=== PATIENT | female | born 1990 | race Caucasian/White ===

== ENCOUNTER 2019-11-26 18:39 | Emergency (ER) | payer BC, OTHER ==
[~2019-11-26] VITALS: Ht 165.1 cm; Wt 106.0 kg
[~2019-11-26 18:39] MED LIST: FLUC100T2 PO; HYDR-3165 PO
[2019-11-26] MEDS ORDERED: DEXAMETHASONE 4 MG TABLET PO ONE (19:00)
[2019-11-26] MEDS ORDERED: PRED20TA PO (19:26)
[2019-11-26] MEDS ORDERED: ALBU2.5V8 IH (19:26)
[2019-11-26] MEDS ORDERED: GUAI118L13 PO (19:26)
--- NOTE | 2019-11-26 19:27 | PHYS DOC ---
Past History Past Medical History: Other Additional Past Medical Histor: migraines Past Surgical History: , Tubal ligation, Other Smoking: Non-smoker Alcohol Use: None Drug Use: None Adult General Chief Complaint Chief Complaint: COUGH HPI HPI 29-year-old female presents with one-week history of cough and nasal congestion. Reports subjective fever/chills. Patient reports was started on Tessalon Perles after evaluation by telemedicine doctor. Reports symptoms are not improved. Reports positive sick contacts in spouse and child. Child recently diagnosed with influenza and started on Tamiflu. Review of Systems Review of Systems Constitutional: Reports subjective fever and chills Eyes: Denies redness or eye pain HENT: Reports nasal congestion and sore throat Respiratory: Reports cough and shortness of breath Cardiovascular: Denies chest pain or palpitations GI: Denies abdominal pain, nausea, or vomiting : Denies dysuria or hematuria Musculoskeletal: Denies back pain or joint pain Integument: Denies rash or skin lesions Neurologic: Denies headache, focal weakness or sensory changes Complete systems were reviewed and found to be within normal limits, except as documented in this note. Current Medications Current Medications Current Medications Medications (Trade) Dose Ordered Sig/Nish Start Time Stop Time Status Last Admin Dose Admin Dexamethasone (Decadron) 10 mg 1X ONCE 11/26/19 19:00 11/26/19 19:01 DC 11/26/19 19:18 10 MG Allergies Allergies Allergies Coded Allergies Type Severity Reaction Last Updated Verified No Known Drug Allergies 02/16/14 No Physical Exam Physical Exam Constitutional: Well developed, well nourished, no acute distress, non-toxic appearance HENT: Normocephalic, atraumatic, oropharynx moist, TMs clear, nasal congestion noted Eyes: Conjunctiva normal, no discharge Neck: Normal range of motion, no tenderness, supple Cardiovascular: Heart rate normal, regular rhythm Lungs & Thorax: Bilateral breath sounds clear to auscultation, no wheezing Abdomen: Soft, no tenderness Skin: Warm, dry, no erythema, no rash Back: No tenderness, no CVA tenderness Extremities: No tenderness, ROM intact, no edema Neurologic: Alert and oriented X 3, no focal deficits noted Psychologic: Affect normal, judgment normal Current Patient Data Vital Signs Vital Signs Date Time Temp Pulse Resp B/P (MAP) Pulse Ox O2 Delivery O2 Flow Rate FiO2 11/26/19 19:18 118 18 143/109 (120) 100 Room Air 11/26/19 18:46 98.9 EKG EKG [] Radiology/Procedures Radiology/Procedures PROCEDURE: CHEST PA & LATERAL EXAM: PA and Lateral Views of the Chest DATE: 11/26/2019 7:15 PM INDICATION: Congestion, cough COMPARISON: No Prior FINDINGS: The heart is not enlarged. Mediastinal and hilar contours are normal. No focal parenchymal airspace opacity. No pleural effusion or pneumothorax. IMPRESSION: 1. No radiographic evidence for acute cardiopulmonary process. Electronically signed by: Carlos Goodson MD (11/26/2019 7:55 PM) [id number] Course & Med Decision Making Course & Med Decision Making Pertinent Imaging studies reviewed. (See chart for details) Patient presents with viral urinary type symptoms/bronchitis 1 week. Chest x- ray without acute process. Symptomatic treatment provided with oral steroid. Patient stable for discharge with outpatient follow-up with PCP. Discussed findings and plan with patient and family, who acknowledge understanding and agreement. Dragon Disclaimer Dragon Disclaimer This electronic medical record was generated, in whole or in part, using a voice recognition dictation system. Departure Departure: Impression: Primary Impression: Bronchitis Additional Impression: Flu-like symptoms Disposition: HOME, SELF-CARE Condition: STABLE Referrals: PCP,NO (PCP) Patient Instructions: Acute Bronchitis, [id number], Viral Syndrome Scripts Guaifenesin/Codeine Phosphate (GUAIFENESIN-CODEINE SYRUP) 118 Ml Liquid 10 ML PO Q4HRS PRN for COUGH, #240 ML Prov: ADELE ONEIL DO 11/26/19 Albuterol Sulfate (PROAIR HFA INHALER) 8.5 Gm Hfa.aer.ad 2 PUFF IH PRN Q4-6HRS PRN for wheezing, #1 INHALER 0 Refills Prov: ADELE ONEIL DO 11/26/19 Prednisone (PREDNISONE) 20 Mg Tablet 2 TAB PO DAILY for Bronchitis, #8 TAB Prov: ADELE ONEIL DO 11/26/19 Problem Qualifiers ADELE ONEIL DO Nov 26, 2019 19:26
[2019-11-26 19:30] VITALS: BP 115/69
[2019-11-26] MEDS ORDERED: IBUPROFEN 600 MG TABLET. PO ONE (19:30)
--- NOTE | 2019-11-26 19:58 | RAD ---
EXAM: PA and Lateral Views of the Chest DATE: 11/26/2019 7:15 PM INDICATION: Congestion, cough COMPARISON: No Prior FINDINGS: The heart is not enlarged. Mediastinal and hilar contours are normal. No focal parenchymal airspace opacity. No pleural effusion or pneumothorax. IMPRESSION: 1. No radiographic evidence for acute cardiopulmonary process. Electronically signed by: Carlos Goodson MD (11/26/2019 7:55 PM) [id number]
== END 2019-11-26 19:30 | disposition home or self-care (01) ==
LOC: ER 18:39
DX: J40 Bronchitis, not specified as acute or chronic (principal)
CPT/HCPCS: 71046; 99284; J8540

== ENCOUNTER 2021-11-24 09:21 | Emergency (ER) | payer BC ==
[~2021-11-24] VITALS: Ht 165.1 cm; Wt 110.2 kg
[2021-11-24 09:21] VITALS: BP 149/97
[~2021-11-24 09:21] MED LIST changes: +ALBU2.5V8 IH; +GUAI118L13 PO; +PRED20TA PO
--- NOTE | 2021-11-24 09:52 | PHYS DOC ---
Past History Past Medical History: Other Additional Past Medical Histor: migraines Past Surgical History: , Tubal ligation, Other Smoking: Non-smoker Alcohol Use: None Drug Use: None General Adult EDM: Chief Complaint: POST-OP PROBLEM HPI: HPI: 31-year-old female presents with lower left quadrant abdominal pain. The patient had a hysterectomy about [address] Tejeda at [facility]. Patient fell on the snow yesterday and has had left-sided abdominal pain since that time. She came in today because she had blood in the stool and a clot passed. She is concerned about internal incision. She has had no complications up until this point. Denies fever or chills. She attempted to call her OB but was unable to get a hold of him. Review of Systems: Review of Systems: Constitutional: Denies fever or chills Eyes: Denies change in visual acuity HENT: Denies nasal congestion or sore throat Respiratory: Denies cough or shortness of breath Cardiovascular: Denies chest pain or edema GI: Left lower quadrant abdominal pain. Denies nausea, vomiting, bloody stools or diarrhea : vaginal bleeding Musculoskeletal: Denies back pain or joint pain Integument: Denies rash Neurologic: Denies headache, focal weakness or sensory changes Endocrine: Denies polyuria or polydipsia Lymphatic: Denies swollen glands Psychiatric: Denies depression or anxiety Allergies: Allergies: Allergies Coded Allergies Type Severity Reaction Last Updated Verified No Known Drug Allergies 02/16/14 No Physical Exam: PE: Constitutional: Well developed, well nourished, no acute distress, non-toxic appearance. [] HENT: Normocephalic, atraumatic, bilateral external ears normal, oropharynx moist, no oral exudates, nose normal. [] Eyes: PERRLA, EOMI, conjunctiva normal, no discharge. [] Neck: Normal range of motion, no tenderness, supple, no stridor. [] Cardiovascular:Heart rate regular rhythm, no murmur [] Lungs & Thorax: Bilateral breath sounds clear to auscultation [] Abdomen: Bowel sounds normal, soft, no tenderness, no masses, no pulsatile masses. [] Skin: Warm, dry, no erythema, no rash. [] Back: No tenderness, no CVA tenderness. [] Extremities: No tenderness, no cyanosis, no clubbing, ROM intact, no edema. [] Neurologic: Alert and oriented X 3, normal motor function, normal sensory function, no focal deficits noted. [] Psychologic: Affect normal, judgement normal, mood normal. [] EKG: EKG: [] Radiology/Procedures: Radiology/Procedures: [] Impressions: CT ABDOMEN+PELVIS W History: Fall, abdominal pain bleeding, recent hysterectomy. Comparison: None. Technique: CT of the abdomen and pelvis with intravenous contrast. Findings: The lung bases are clear. No pleural or pericardial effusion. The liver, gallbladder, pancreas, spleen, and adrenal glands are unremarkable. There is a punctate nonobstructing left lower pole nephrolith. Mild prominence of the renal collecting system without obstruction or hydronephrosis. The bladder is within normal limits. Postsurgical changes from hysterectomy. There is a small amount of free fluid in the pelvic cul-de-sac. No loculated fluid collection or abscess identified. The bilateral ovaries are unremarkable. The stomach, small bowel, and appendix are normal. No colonic wall thickening or pericolonic inflammatory changes. No excessive colonic stool burden. The vasculature is normal. No adenopathy. No intra-abdominal free air. Lower abdominal wall surgical incision without evidence of subcutaneous collection. Osseous structures are unremarkable. Impression: 1. Postsurgical changes from hysterectomy with trace fluid fluid adjacent to the vaginal cuff in the pelvic cul-de-sac. No abscess identified. 2. No acute findings in the abdomen and pelvis. ------ Exposure: One or more of the following individualized dose reduction techniques were utilized for this examination: 1. Automated exposure control 2. Adjustment of the mA and/or kV according to patient size 3. Use of iterative reconstruction technique. Electronically signed by: Marcio Tejeda MD (11/24/2021 10:32 AM) [id number] DICTATED AND SIGNED BY: MARCIO TEJEDA MD DATE: 11/24/21 1016 CC: STEFFI TORRES DO; KJ COVINGTON MD ~MTH0 0 Heart Score: C/O Chest Pain: N/A Risk Factors: Risk Factors: DM, Current or recent (<one month) smoker, HTN, HLP, family history of CAD, obesity. Risk Scores: Score 0 - 3: 2.5% MACE over next 6 weeks - Discharge Home Score 4 - 6: 20.3% MACE over next 6 weeks - Admit for Clinical Observation Score 7 - 10: 72.7% MACE over next 6 weeks - Early Invasive Strategies Course & Med Decision Making: Course & Med Decision Making Pertinent Labs and Imaging studies reviewed. (See chart for details) The patient CT scan shows postsurgical changes and trace fluid adjacent to the vaginal cuff and the pelvic cul-de-sac. No other acute findings. See official read for details. Vaginal exam showed intact surgical line with small amount of brownish fluid from the 3 o'clock position. This was likely a draining seroma or similar collection of fluid from surgery. Hemoglobin is 10.4. Do not see signs of active bleeding. The patient will follow up with OB tomorrow. She is stable for discharge at this time. If her condition worsens in any way she will return to the emergency room or go to the hospital where her surgery was performed. With [] Dragon Disclaimer: Dragon Disclaimer: This electronic medical record was generated, in whole or in part, using a voice recognition dictation system. Departure Departure: Impression: Primary Impression: Postoperative vaginal bleeding Disposition: HOME / SELF CARE / HOMELESS Condition: STABLE Referrals: KJ COVINGTON MD (PCP) Patient Instructions: Abdominal Pain, [id number] STEFFI TORRES DO Nov 24, 2021 09:51
[2021-11-24] MEDS ORDERED: IOHEXOL 300 MG/ML 75 ML VIAL. IV ONE (10:00)
[2021-11-24] MEDS ORDERED: IV NORMAL SALINE 1,000ML 1,000 ML IV ONE (10:00)
[2021-11-24] MEDS ORDERED: ONDANSETRON PF 4 MG/2 ML VIAL. IVP ONE (10:00)
[2021-11-24] MEDS ORDERED: CONTRAST GIVEN. MC PRN (10:15)
[2021-11-24 10:21] LABS: BASO # 0.1 x10^3/uL (0.0-0.2); BASO % 1 % (0-3); EOS # 0.4 x10^3/uL (0.0-0.7); EOS % 4 % (0-3); HEMATOCRIT 33.6 % (36.0-47.0); HEMOGLOBIN 10.4 g/dL (12.0-15.5); LYMPH % 25 % (24-48); MEAN CORPUSCULAR HEMOGLOBIN 26 pg (25-35); MEAN CORPUSCULAR HGB CONC 31 g/dL (31-37); MEAN CORPUSCULAR VOLUME 82 fL (79-100); MONO # 0.6 x10^3/uL (0.0-1.1); MONO % 8 % (0-9); NEUT # 5.2 x10^3uL (1.8-7.7); NEUT % 63 % (31-73); PLATELET COUNT 291 x10^3/uL (140-400); RED BLOOD COUNT 4.09 x10^6/uL (3.50-5.40); RED CELL DISTRIBUTION WIDTH 16.3 % (11.5-14.5); WHITE BLOOD COUNT 8.3 x10^3/uL (4.0-11.0)
[2021-11-24 10:26] LABS: CALCIUM 9.2 mg/dL (8.5-10.1); CREATININE 0.8 mg/dL (0.6-1.0); GFR 83.1; POTASSIUM 4.4 mmol/L (3.5-5.1)
[2021-11-24 10:31] LABS: ALBUMIN 3.3 g/dL (3.4-5.0); ALBUMIN/GLOBULIN RATIO 0.8 (1.0-1.7); TOTAL BILIRUBIN 0.4 mg/dL (0.2-1.0); TOTAL PROTEIN 7.3 g/dL (6.4-8.2)
--- NOTE | 2021-11-24 10:34 | RAD ---
CT ABDOMEN+PELVIS W History: Fall, abdominal pain bleeding, recent hysterectomy. Comparison: None. Technique: CT of the abdomen and pelvis with intravenous contrast. Findings: The lung bases are clear. No pleural or pericardial effusion. The liver, gallbladder, pancreas, spleen, and adrenal glands are unremarkable. There is a punctate no nobstructing left lower pole nephrolith. Mild prominence of the renal collecting system without obstr uction or hydronephrosis. The bladder is within normal limits. Postsurgical changes from hysterectomy. There is a small amount of free fluid in the pelvic cul-de-sa c. No loculated fluid collection or abscess identified. The bilateral ovaries are unremarkable. The stomach, small bowel, and appendix are normal. No colonic wall thickening or pericolonic inflamma tory changes. No excessive colonic stool burden. The vasculature is normal. No adenopathy. No intra-abdominal free air. Lower abdominal wall surgical incision without evidence of subcutaneous collection. Osseous structures are unremarkable. Impression: 1. Postsurgical changes from hysterectomy with trace fluid fluid adjacent to the vaginal cuff in the pelvic cul-de-sac. No abscess identified. 2. No acute findings in the abdomen and pelvis. ------ Exposure: One or more of the following individualized dose reduction techniques were utilized for thi s examination: 1. Automated exposure control 2. Adjustment of the mA and/or kV according to patient size 3. Use of iterative reconstruction technique. Electronically signed by: Marcio Cornejo MD (11/24/2021 10:32 AM) [id number]
== END 2021-11-24 11:54 | disposition home or self-care (01) ==
LOC: ER 09:21
DX: N99.821 Postprocedural hemorrhage of a genitourinary system organ or structure following other procedure (principal); R10.32 Left lower quadrant pain; G43.909 Migraine, unspecified, not intractable, without status migrainosus; Z90.710 Acquired absence of both cervix and uterus; Z98.51 Tubal ligation status; Z98.890 Other specified postprocedural states; W00.0XXA Fall on same level due to ice and snow, initial encounter; Y93.89 Activity, other specified; Y92.89 Other specified places as the place of occurrence of the external cause; Y99.8 Other external cause status
CPT/HCPCS: 36415; 74177; 80053; 85025; 96361; 96374; 96375; 99285; J2405; J3010; J7030; Q9967